=== PATIENT | female | born 1990 | race Caucasian/White ===

== ENCOUNTER 2020-01-11 17:09 | Emergency (ER) | payer OTHER ==
[~2020-01-11] VITALS: Ht 172.7 cm; Wt 77.1 kg
[2020-01-11 17:16] VITALS: BP 179/126
[2020-01-11] MEDS ORDERED: NORCO 5-325 TA1 EAC1 PO (17:33)
== END 2020-01-11 17:48 | disposition home or self-care (01) ==
LOC: M.ERS 17:09
DX: S46.812A Strain of other muscles, fascia and tendons at shoulder and upper arm level, left arm, initial encounter (principal); X50.9XXA Other and unspecified overexertion or strenuous movements or postures, initial encounter; Y93.89 Activity, other specified; Y92.89 Other specified places as the place of occurrence of the external cause; Y99.8 Other external cause status